=== PATIENT | female | born 1965 | race Caucasian/White ===

== ENCOUNTER → 2024-07-16 14:29 | Outpatient (BNVA) | payer BC, SELFPAY | PROVIDERS: Family Provider Family Medicine; PCP Family Medicine; Visit Provider Family Medicine | DX: I10 Essential (primary) hypertension (principal); E03.9 Hypothyroidism, unspecified | CPT/HCPCS: 80053; 80061; 84439; 84443; 84481 ==

== ENCOUNTER → 2024-09-11 09:10 | Outpatient (BNVA) | payer BC, SELFPAY | PROVIDERS: Family Provider Family Medicine; PCP Family Medicine; Visit Provider Family Medicine | DX: Z12.4 Encounter for screening for malignant neoplasm of cervix (principal) | CPT/HCPCS: 87624 ==

== ENCOUNTER 2025-01-01 08:56 | Outpatient (CLI) | payer OTHER, SELFPAY ==
--- NOTE | 2025-01-01 09:00 | MM_ITS ---
WS: [id number] SCREENING DIGITAL BREAST TOMOSYNTHESIS MAMMOGRAM WITH CAD HISTORY: Z12.39 - Encounter for other screening for malignant neop... COMPARISON: None available. Bilateral CC and MLO with tomosynthesis and synthetic mammography submitted. Computer aided detection analyzed. Breast composition: There are scattered areas of fibroglandular density. Well- circumscribed mass measuring 8 x 6 mm seen only on the LEFT MLO projection in the posterior medial inferior LEFT breast. This is very closely associated with the chest wall. No additional suspicious masses or calcifications. MM/MM [facility] tomosynthesis [id number] IMPRESSION: BI-RADS: 0 - Incomplete: Need additional imaging evaluation. FOLLOW UP: Need Additional Imaging LEFT breast: Spot compression views (CC and MLO). Exaggerated medial CC. True M L. Ultrasound to follow if abnormality persists.
== END 2025-01-01 08:57 | disposition home or self-care (01) ==
PROVIDERS: Family Provider Family Medicine; PCP Family Medicine; Visit Provider Family Medicine
DX: Z12.31 Encounter for screening mammogram for malignant neoplasm of breast (principal); R92.323 Mammographic fibroglandular density, bilateral breasts; N63.20 Unspecified lump in the left breast, unspecified quadrant
CPT/HCPCS: 77063; 77067

== ENCOUNTER → 2025-01-13 10:11 | Outpatient (BNVA) | payer OTHER, SELFPAY | PROVIDERS: Family Provider Family Medicine; PCP Family Medicine; Visit Provider Family Medicine | DX: E03.9 Hypothyroidism, unspecified (principal) | CPT/HCPCS: 84439; 84443; 84481 ==

== ENCOUNTER 2025-02-03 06:44 | Outpatient (CLI) | payer OTHER, SELFPAY ==
--- NOTE | 2025-02-03 07:17 | XR_ITS ---
WS: [id number] XR hip RT 2-3V wo/w pel* [id number] REASON FOR EXAM: M25.551 - Pain in right hip FINDINGS: No fracture or focal bone lesion. Minimal narrowing of the posterior inferior joint space. Mild subchondral sclerosis and osteophytosis of the acetabulum. No significant abnormality of the femoral head or neck. XR/XR hip RT 2-3V wo/w pel* [id number] IMPRESSION: Minimal osteoarthritis. No acute abnormality.
--- NOTE | 2025-02-03 07:18 | MM_ITS ---
WS: [id number] ADDITIONAL VIEWS LEFT MAMMOGRAM WITH DIGITAL BREAST TOMOSYNTHESIS. HISTORY: Additional imaging mass LEFT breast. COMPARISON: 01/01/2025 Spot compression views LEFT breast in MLO projection and true ML submitted with digital breast tomosynthesis and SM. Additional CC and MLO views with marker placed on a superficial skin lesion. Breast composition: There are scattered areas of fibroglandular density. Reidentified is a 7 mm high density mass which was previously described. This mass is in the subcutaneous soft tissue. Skin marker is placed in the site of this lesion. This is identified in both the CC and lateral projection as superficial. No additional imaging necessary. MM/MM diag [facility] tomosynthesis [id number] IMPRESSION: BI-RADS: 2 - Benign. FOLLOW UP: 1 Year Follow-up Return to annual screening mammography.
== END 2025-02-03 06:45 | disposition home or self-care (01) ==
LOC: RAD 06:45
PROVIDERS: PCP Family Medicine; Visit Provider Family Medicine
DX: M25.551 Pain in right hip (principal); G89.29 Other chronic pain; R92.322 Mammographic fibroglandular density, left breast; N63.20 Unspecified lump in the left breast, unspecified quadrant; M16.7 Other unilateral secondary osteoarthritis of hip; M25.751 Osteophyte, right hip
CPT/HCPCS: 73502; 77061; G0279